=== PATIENT | male | born 1970 | race Caucasian/White ===

== ENCOUNTER 2019-09-15 08:10 | Emergency (ER) | payer BC ==
[2019-09-15 08:15] VITALS: TEMP 98.6
[2019-09-15] MEDS ORDERED: ASPIRIN 81 MG PO STA (08:16)
[2019-09-15] MEDS ORDERED: NITROGLYCERIN SL TABS 0.4 MG TAB SUBLINGUAL STA (08:22)
--- NOTE | 2019-09-15 08:25 | ED ---
Chest Pain HPI - General Source: patient, RN notes reviewed Mode of arrival: wheelchair Limitations: no limitations <Eric Crawford - Last Filed: 09/15/19 10:14> <Marco Ghosh - Last Filed: 09/15/19 10:25> - General Chief Complaint: Chest Pain Stated Complaint: Chest pain Time Seen by Provider: 09/15/19 08:12 - History of Present Illness Initial Comments: 49-year-old male presents emergency department with chief complaint of chest pain, chest pressure. Patient states started yesterday late morning. Patient s tates pain has not dissipated. He initially felt better just related to his reflux but states that this is not going away like usual. he states it's centralized pain rates up into his neck region. Patient does have a history of hypertension, was on prior hyperlipidemia medications. Patient is a nonsmoker no significant family cardiac disease denies any history of diabetes. Patient is generally does not feel well has a mild headache. Patient has had a stress test in the past but states it was several years ago. Patient denies any current shortness of breath pleuritic chest pain. (Eric Crawford) - Related Data Home Medications Medication Instructions Recorded Confirmed Aspirin EC [Ecotrin Low Dose] 81 mg PO DAILY 09/15/19 09/15/19 Cholecalciferol [Vitamin D3 (25 1,000 unit PO DAILY 09/15/19 09/15/19 Mcg = 1000 Iu)] Hydrochlorothiazide [Hydrodiuril] 25 mg PO DAILY 09/15/19 09/15/19 Multivitamins, Thera [Multivitamin 1 tab PO DAILY 09/15/19 09/15/19 (formulary)] Rupert-3 Fatty Acids/Fish Oil [Fish 1 cap PO DAILY 09/15/19 09/15/19 Oil 1,000 mg Softgel] Omeprazole 40 mg PO DAILY 09/15/19 09/15/19 Allergies Allergy/AdvReac Type Severity Reaction Status Date / Time doxycycline Allergy Rash/Hives Verified 09/15/19 09:32 Penicillins Allergy Rash/Hives Verified 09/15/19 09:32 ranitidine [From Zantac] AdvReac Rapid Verified 09/15/19 09:32 Heart Rate Review of Systems ROS Other: All systems not noted in ROS Statement are negative. <Eric Crawford - Last Filed: 09/15/19 10:14> ROS Other: All systems not noted in ROS Statement are negative. <Marco Ghosh - Last Filed: 09/15/19 10:25> ROS Statement: Those systems with pertinent positive or pertinent negative responses have been documented in the HPI. EKG Findings - EKG Comments: EKG Findings:: EKG interpreted by me at 8:22 normal sinus rhythm rate of 77 OK 180 QRS 92 QT/QTC 366/414 <Eric Crawford - Last Filed: 09/15/19 10:14> Past Medical History Past Medical History: GERD/Reflux, Hypertension Additional Past Medical History / Comment(s): First degree heart block History of Any Multi-Drug Resistant Organisms: None Reported Past Surgical History: No Surgical Hx Reported Past Psychological History: No Psychological Hx Reported Smoking Status: Never smoker Past Alcohol Use History: Occasional Past Drug Use History: None Reported <Eric Crawford - Last Filed: 09/15/19 10:14> General Exam Limitations: no limitations General appearance: alert, in no apparent distress Head exam: Present: atraumatic, normocephalic, normal inspection Eye exam: Present: normal appearance, PERRL, EOMI. Absent: scleral icterus, conjunctival injection, periorbital swelling ENT exam: Present: normal exam, mucous membranes moist Neck exam: Present: normal inspection, full ROM. Absent: tenderness, meningismus, lymphadenopathy Respiratory exam: Present: normal lung sounds bilaterally. Absent: respiratory distress, wheezes, rales, rhonchi, stridor Cardiovascular Exam: Present: regular rate, normal rhythm, normal heart sounds. Absent: systolic murmur, diastolic murmur, rubs, gallop, clicks GI/Abdominal exam: Present: soft, normal bowel sounds. Absent: distended, tenderness, guarding, rebound, rigid Neurological exam: Present: alert, oriented X3 Skin exam: Present: warm, dry, intact, normal color. Absent: rash <Eric Crawford - Last Filed: 09/15/19 10:14> Course <Marco Ghosh - Last Filed: 09/15/19 10:25> Vital Signs 09/15/19 09/15/19 09/15/19 08:11 08:33 09:53 Temperature 98.6 F Pulse Rate 84 82 73 Respiratory 16 16 18 Rate Blood Pressure 140/92 123/73 122/87 O2 Sat by Pulse 96 95 98 Oximetry - Reevaluation(s) Reevaluation #1: 09/15/19 10:24 PA supervision: I personally do a [id number] evaluation as patient and did discuss the findings with him. The presentation is consistent with anginal type pain. Patient has had some pain similar to this in the past he believes is esophageal. He did have a stress test over 10-12 years ago. He was encouraged to stay in the hospital for evaluation but at this time is elected to not stay. He is aware the risks and benefits. He was counseled on follow-up and return if needed. The patient does state he wants her follow-up with his own physicians. (Marco Ghosh) Chest Pain MDM <Eric Crawford - Last Filed: 09/15/19 10:14> - [facility] EKG labs and chest x-ray reviewed were reviewed. There are no acute findings at this time I did recommend the patient that he should stay in the hospital, should be heparinized to have repeat troponins, further evaluation with cardiology including echo possible stress test. He has not had a stress test in several years. Patient believes this is related to his GERD. I did outline risks of leaving. Patient understands. Patient is refusing admission at this time. (Eric Crawford) Disposition Is patient prescribed a controlled substance at d/c from ED?: No Time of Disposition: 10:15 <Eric Crawford - Last Filed: 09/15/19 10:14> <Marco Ghosh - Last Filed: 09/15/19 10:25> Clinical Impression: Chest pain Disposition: HOME SELF-CARE Instructions (If sedation given, give patient instructions): Chest Pain (ED) Additional Instructions: Please return to the Emergency Department if symptoms worsen or any other concerns. Referrals: None,Stated [REFERRING] - 1-2 days
[2019-09-15 08:37] LABS: Basophils # (A) 0.1 k/uL (0-0.2); Basophils % (A) 1 %; Eosinophils # (A) 0.4 k/uL (0-0.7); Eosinophils % (A) 4 %; HGB 16.5 gm/dL (13.0-17.5); Lymphocytes # (A) 1.8 k/uL (1.0-4.8); Lymphocytes % (A) 17 %; MCH 30.9 pg (25.0-35.0); MCHC 34.4 g/dL (31.0-37.0); MCV 89.7 fL (80.0-100.0); Mean Platelet Volume 5.9; Monocytes # (A) 0.4 k/uL (0-1.0); Monocytes % (A) 4 %; Neutrophils # (A) 7.5 k/uL (1.3-7.7); Neutrophils % (A) 73 %; Platelet Count 332 k/uL (150-450); RBC 5.35 m/uL (4.30-5.90); RDW 12.3 % (11.5-15.5); WBC 10.4 k/uL (3.8-10.6)
[2019-09-15 08:47] LABS: ALT 37 U/L (21-72); AST 28 U/L (17-59); African American GFR (CKD) >90 (>60 ml/min/1.73 sqM); Albumin 4.6 g/dL (3.5-5.0); Alkaline Phosphatase 55 U/L (38-126); Anion Gap 12 mmol/L; Blood Urea Nitrogen 15 mg/dL (9-20); Calcium 9.8 mg/dL (8.4-10.2); Carbon Dioxide 23 mmol/L (22-30); Chloride 107 mmol/L (98-107); Glucose 122 mg/dL (74-99); Magnesium 1.9 mg/dL (1.6-2.3); Non-African American GFR(CKD) >90 (>60 ml/min/1.73 sqM); Sodium 142 mmol/L (137-145); Total Bilirubin 0.8 mg/dL (0.2-1.3); Total Protein 7.8 g/dL (6.3-8.2)
[2019-09-15 08:58] LABS: INR 0.9 (<1.2); Prothrombin Time 9.9 sec (9.0-12.0)
--- NOTE | 2019-09-15 09:30 | XR ---
EXAMINATION TYPE: XR chest 2V DATE OF EXAM ORDERED: 09/15/2019 HISTORY: Chest Pain. REFERENCE: None. FINDINGS: The lungs are clear. Pleural spaces are clear. Heart size is normal. IMPRESSION: NORMAL CHEST.
[2019-09-15 09:54] VITALS: BP 122/87; PULSE 73; RESP 18
== END 2019-09-15 10:22 | disposition home or self-care (01) ==
LOC: EC 08:10 → SUPCPDRO 08:10 → EC 10:22
DX: R07.89 Other chest pain (principal); K21.9 Gastro-esophageal reflux disease without esophagitis; R51 Headache; I10 Essential (primary) hypertension; E78.5 Hyperlipidemia, unspecified; I44.0 Atrioventricular block, first degree; Z79.82 Long term (current) use of aspirin; Z79.899 Other long term (current) drug therapy; Z88.0 Allergy status to penicillin; Z88.1 Allergy status to other antibiotic agents; Z88.8 Allergy status to other drugs, medicaments and biological substances
CPT/HCPCS: 36415; 71046; 80053; 83690; 83735; 83880; 84484; 85025; 85610; 85730; 93005; 99285